=== PATIENT | female | born 1960 | race Caucasian/White ===

== ENCOUNTER → 2017-03-06 | Outpatient (CLI) | payer OTHER ==
--- NOTE | 2017-03-06 16:06 | XR ---
EXAMINATION TYPE: XR mandible complete DATE OF EXAM: 03/06/2017 COMPARISON: NONE HISTORY: Bilateral TMJ swelling TECHNIQUE: Complete mandible with open and closed small frontal view as well as both oblique projecti ons and lateral view. Cancelled sialogram FINDINGS: Mandible is grossly intact without acute fracture or dislocation. No suspicious focal soft tissue swelling is seen on images saved. Lack of dentition noted. IMPRESSION: As above.
== END | disposition home or self-care (01) ==
LOC: RADFLWHC 14:12
PROVIDERS: ATTEND Family Medicine
DX: K11.21 Acute sialoadenitis (principal)
CPT/HCPCS: 70110